=== PATIENT | female | born 1975 | race African-American/Black ===

== ENCOUNTER 2018-07-04 23:40 | Emergency (ER) | payer MEDICARE, MEDICAID ==
[~2018-07-04] VITALS: Ht 149.9 cm; Wt 61.4 kg
[2018-07-05] MEDS ORDERED: LORATADINE 10MG TABLET PO SCH (07:30)
[2018-07-05 08:35] VITALS: BP 132/94
[2018-07-05] MEDS ORDERED: FLUTICASONE PROPIONATE 50MCG/SPRAY BOTTLE BOTHNSTRLS SCH (09:00)
== END 2018-07-05 08:55 | disposition home or self-care (01) ==
LOC: ER 23:57
DX: J30.9 Allergic rhinitis, unspecified (principal); F17.290 Nicotine dependence, other tobacco product, uncomplicated; Z59.0 Homelessness; F41.9 Anxiety disorder, unspecified; Z88.1 Allergy status to other antibiotic agents
CPT/HCPCS: 81025; 99283; 99406

== ENCOUNTER 2019-01-19 01:38 | Emergency (ER) | payer MEDICAID, MEDICARE ==
[~2019-01-19] VITALS: Ht 149.9 cm; Wt 80.0 kg
[2019-01-19 01:42] VITALS: BP 134/82
[2019-01-19] MEDS ORDERED: ACETAMINOPHEN 325MG TABLET PO ONE (03:30)
== END 2019-01-19 02:43 | disposition home or self-care (01) ==
LOC: ER 01:38
DX: R51 Headache (principal); Z88.0 Allergy status to penicillin
CPT/HCPCS: 99283